=== PATIENT | male | born 1995 | race Caucasian/White ===

== ENCOUNTER 2018-06-23 20:01 | Outpatient (REF) | payer BC, SELFPAY | END 2018-06-23 20:21 | LOC: LBN 20:01 | PROVIDERS: Visit Provider Physician Assistant | DX: J03.90 Acute tonsillitis, unspecified (principal) | CPT/HCPCS: 87070 ==

== ENCOUNTER 2018-06-25 17:49 | Emergency (ER) | payer BC, SELFPAY ==
[2018-06-25 17:55] VITALS: BP 131/56; PULSE 70; RESP 16; TEMP 36.7; O2SAT 98
--- NOTE | 2018-06-25 18:00 | ED.GENADUL_ITS ---
Discharge Plan Disposition Patient Disposition: HOME Condition: Stable Discharge Details Chief Complaint: Sorethroat Clinical Impression: Infectious mononucleosis Primary Care Provider: Susie,Local ED Provider: Silke Aragon Home Meds and New Rx's Prescriptions: Continue ibuprofen 600 mg Tablet 600 mg PO QID PRNRF: 0 Discharge Instructions Instructions: Mononucleosis (ED) Additional Instructions: Please return immediately to the emergency department if you develop any new or worsening symptoms or if you become otherwise concerned. It is extremely important that you make an appointment to be seen by her primary care doctor within 1 week and follow-up for this visit. Please do not play contact sports or participate in activities where you could injure your abdomen for 4 weeks from the onset of your mono symptoms, as you are at increased risk of splenic rupture. Medical Decision Making Jaron Hopkins is a 23-year-old man with history of asthma presenting to the emergency department with worsening sore throat after being diagnosed with mono 2 days ago. On exam patient is well and nontoxic appearing. Tonsils are 3+ bilaterally with midline uvula. Full painless range of motion of the neck. Benign cardiopulmonary exam. Exam/history is not consistent with impending airway compromise, sepsis, retropharyngeal abscess, peritonsillar abscess, acute bacterial infection. Plan for dexamethasone 4 symptomatic treatment. Lengthy discussion with patient regarding no contact sports for 4 weeks from onset of symptoms. Lengthy discussion with patient regarding return to emergency department precautions and importance of outpatient follow-up with his PCP. Patient is amenable to the plan. Medical Records Medical records reviewed: Yes I reviewed the patient's medical records. HPI General Mode of arrival: ambulatory . Date/Time Provider Initiated Documentation: 06/25/18 17:59 . Limitations to Documentation: no limitations . Information obtained by: patient, family, RN notes reviewed and old records reviewed . HPI Narrative: Jaron Hopkins is a 23-year-old man with history of asthma presenting to the emergency department with sore throat. Patient reports that 2 days ago he was diagnosed by his school physician with mono. He reports that he has had sore throat and pain with swallowing for 1 week. Patient now presenting to the emergency department for worsening sore throat since being diagnosed with mono 2 days ago. He has continued to eat and drink as usual. No fevers, no shortness of breath, no cough, no vomiting, no diarrhea, no rash, no drooling. Patient reports that he has been sleeping flat at night with one pillow with no issue. Does not feel short of breath on lying flat. no other recent illness. No recent travel. Related Data Home Medications Medication Instructions Recorded Confirmed ibuprofen 600 mg PO QID PRN 06/25/18 06/25/18 Allergies Allergy/AdvReac Type Severity Reaction Status Date / Time No Known Allergies Allergy Unverified 06/25/18 18:01 General Stated Complaint: Sorethroat AMADOU: 3 Review of Systems Review of Systems Constitutional: denies fevers Eyes: denies eye pain ENT: denies facial pain, dental pain, reports sore throat Cardiovascular: denies chest pain Respiratory: denies SOB, cough GI: denies abdominal pain, vomiting, diarrhea : denies flank pain, dysuria MSK: denies back pain, neck pain, arthralgias, myalgias Skin: denies rash Neuro: denies headaches, lightheadedness, weakness PFSH Social History Smoking/Tobacco Use Status: Never Social History Smoking/Tobacco Use Status: Never Exam Narrative Exam Narrative: Constitutional: well and [id number], pleasant, conversing normally HENT: head atraumatic, normocephalic normal inspection, mucous membranes moist, tonsils 3+ bilaterally with exudate, uvula midline, no other intraoral lesion, no drooling, normal voice, handling secretions without Eyes: conjunctiva normal, sclera normal, pupils 3mm b/l Neck: no stridor, full painless range of motion, trachea midline, no lymphadenopathy Chest: normal inspection Resp: normal work of breathing, LCTAB Cardio: normal rate, normal rhythm, no murmur appreciated Back: normal inspection, no rash Skin: warm, dry, normal color, no rash Neuro: alert, not altered, grossly non-focal, normal tone Ext: no edema Psych: normal mood, normal affect, normal behavior Course Vital Signs Temperature 36.7 C 06/25/18 17:55 Pulse 70 06/25/18 17:55 Respiratory Rate 16 06/25/18 17:55 Blood Pressure 131/56 L 06/25/18 17:55 Pulse Oximetry 98 06/25/18 17:55 Temperature 36.7 C 06/25/18 17:55 Temperature Source Temporal Artery Scan 06/25/18 17:55 Pulse 70 06/25/18 17:55 Respiratory Rate 16 06/25/18 17:55 Blood Pressure 131/56 L 06/25/18 17:55 Blood Pressure Position Sitting 06/25/18 17:55 Pulse Oximetry 98 06/25/18 17:55 Oxygen Delivery Method Room Air 06/25/18 17:55 Oxygen Flow Rate 0 06/25/18 17:55 Pain Level 8 06/25/18 17:55
[2018-06-25] MEDS: Dexamethasone 10 MG/ML VIAL IM (18:38)
== END 2018-06-25 18:44 | disposition home or self-care (01) ==
PROVIDERS: Emergency Provider Student in an Organized Health Care Education/Training Program
DX: B27.90 Infectious mononucleosis, unspecified without complication (principal)
CPT/HCPCS: 96372; 99284; J1100

== ENCOUNTER 2018-06-27 12:57 | Emergency (ER) | payer BC, SELFPAY ==
[2018-06-27 13:01] VITALS: BP 122/72; PULSE 93; RESP 18; TEMP 36.8; O2SAT 100
--- NOTE | 2018-06-27 13:13 | W.ED.GENAD ---
Discharge Plan Disposition Patient Disposition: HOME Condition: Improving Discharge Details Chief Complaint: GenMedical Clinical Impression: Mononucleosis Primary Care Provider: None,None ED Provider: Erwin Desir Home Meds and New Rx's Prescriptions: Continue ibuprofen 800 MG tablet 800 mg PO TID PRN PRNQty: 30 RF: 0 Discharge Instructions Instructions: Viral Syndrome (ED) Additional Instructions: Continue Ibuprofen as needed for pain 800mg every 8 hrs, with food. Small frequent sips of fluids to maintain hydration. May gargle warm salt water to reduce discomfort as well. Please follow-up at [facility] tomorrow for a recheck. No contact sports for 4-6 weeks Stand Alone Forms: School Release Medical Decision Making 23-year-old male presents with 2 days of sore throat and hoarse voice. He was seen in the emergency department on June 25, had an unremarkable/negative throat culture, he was given a dose of steroids and NSAIDs. States that he has had persistent sore throat with some hoarseness of voice. He is not had no drooling or inability to swallow. He is afebrile and exam is notable for bilateral tonsillar erythema, swelling and overlying white exudate. I reviewed available pathology and microbiology including throat culture from June 23 which did not reveal acute pathogen. IV access established, given ketorolac, fluids, dexamethasone for its anti-inflammatory properties. Laboratories obtained and reveal + monospot as well as mild elevation of WBC with mono/lymphocytes. LFT's unremarkable. Patient improved. Taking liquids and popsicle by mouth. States he feels better. Discussed with him his laboratory and recent culture results. Discussed with him avoidance of contact sports and follow-up at [facility] at his college. Lab Data Lab results reviewed: Yes I reviewed the patient's lab results. Laboratory Results - last 24 hr Laboratory Tests Range/Units 06/27/18 06/27/18 06/27/18 13:35 13:35 13:35 WBC (4.4-10.8) k/cumm 11.70 H RBC (4.50-6.00) m/cumm 4.05 L Hgb (13.5-17.5) g/dL 12.5 L Hct (40.0-50.0) % 36.3 L MCV (80-95) fL 89.6 MCH (27.0-33.0) pg 30.9 MCHC (32.0-36.0) g/dL 34.4 RDW (11.8-14.1) % 13.0 Plt Count (130-400) x1000/uL 219 MPV (8.0-11.0) fL 9.6 Immature Gran % 0.3 Neutrophils % 47.9 Lymphocytes % 34.1 Monocytes % 16.1 Eosinophils % 0.1 Basophils % 1.5 Absolute Neutrophils (1.2-6.7) k/cumm 5.60 Absolute Lymphocytes (1.2-3.4) k/cumm 3.99 H Absolute Monocytes (0.11-0.7) k/cumm 1.88 H Absolute Eosinophils (0.0-0.7) k/cumm 0.01 Absolute Basophils (0.0-0.2) k/cumm 0.18 Sodium (136-145) mmol/L 141 Potassium (3.5-5.1) mmol/L 3.8 Chloride (98-107) mmol/L 104 Carbon Dioxide (21.0-32.0) mmol/L 28.3 Anion Gap (3-11) mmol/L 8.7 BUN (7-18) mg/dL 13 Creatinine (0.70-1.30) mg/dL 0.96 Estimated GFR/1.73 m2 (mL/min/1.73m2) >= 60.00 Glucose (70-100) mg/dL 89 Calcium (8.5-10.1) mg/dL 8.6 Total Bilirubin (0.2-1.0) mg/dL 0.5 AST (15-37) U/L 36 ALT (12-78) U/L 72 Alkaline Phosphatase (46-116) U/L 81 Total Protein (6.4-8.2) g/dL 7.5 Albumin (3.4-5.0) g/dL 3.3 L Monoscreen (Negative) Positive 06/27/18 06/27/18 13:35 13:35 WBC 11.70 H RBC 4.05 L Hgb 12.5 L Hct 36.3 L MCV 89.6 MCH 30.9 MCHC 34.4 RDW 13.0 Plt Count 219 MPV 9.6 Immature Gran % 0.3 Neutrophils % 47.9 Lymphocytes % 34.1 Monocytes % 16.1 Eosinophils % 0.1 Basophils % 1.5 Absolute Neutrophils 5.60 Absolute Lymphocytes 3.99 H Absolute Monocytes 1.88 H Absolute Eosinophils 0.01 Absolute Basophils 0.18 Monoscreen Positive HPI General Mode of arrival: ambulatory. Date/Time Provider Initiated Documentation: 06/27/18 13:04. Limitations to Documentation: no limitations. Information obtained by: patient. History of Present Illness 23 year old M presents to the emergency department with the chief complaint of Sore throat, persistent, described as moderate, Quality is described as aching, dull and constant, and is localized to the neck. Patient reports no radiation. Patient started experiencing this day(s) and it has been constant. No relieving factors improve symptom(s), No exacerbating factors reported . Patient notes other (Decreased p.o. intake. Tolerating liquids and able to swallow. He states he has a hoarse voice.). Related Data Home Medications Medication Instructions Recorded Confirmed ibuprofen 800 mg PO TID PRN PRN #30 tab 05/06/16 06/27/18 Previous Rx's Medication Instructions Recorded ibuprofen 800 mg PO TID PRN PRN #30 tab 05/06/16 Allergies Allergy/AdvReac Type Severity Reaction Status Date / Time No Known Allergies Allergy Unverified 05/06/16 22:24 General Stated Complaint: GenMedical AMADOU: 3 Review of Systems Review of Systems 8 systems reviewed and otherwise neg [facility] Social History Smoking/Tobacco Use Status: Never Social History Smoking/Tobacco Use Status: Never Exam Narrative Exam Narrative: GEN: awake, alert, oriented 3. Pleasant, well groomed, interactive. HEAD: Normocephalic, atraumatic ENT: Mucous membranes dry, oropharynx with by lateral, symmetric tonsillar erythema and swelling with overlying white exudate, External ear exam unremarkable EYES: PERRL, EOMI NECK: Full ROM, anterior cervical GORDY, no menigismus CHEST/RESP: Nontender, clear to auscultation bilateral, no wheeze/rhonchi/rales CARDIOVASCULAR: RRR, no murmur, rub raquel. 2+ Rad pulse bilateral ABDOMEN: Soft, nontender, no mass or organomegaly. +Bowel sounds EXT: Full ROM, no edema, no rash Neuro: Grossly normal neurologic exam, conversant, interactive. Psych: Speech fluent, thoughts congruent, affect normal Course Vital Signs Temperature 36.8 C 06/27/18 13:01 Pulse 93 H 12/09/18 13:01 Respiratory Rate 18 06/27/18 13:01 Blood Pressure 122/72 06/27/18 13:01 Pulse Oximetry 100 06/27/18 13:01 Temperature 36.8 C 06/27/18 13:01 Temperature Source Temporal Artery Scan 06/27/18 13:01 Pulse 93 H 06/27/18 13:01 Respiratory Rate 18 06/27/18 13:01 Respiratory Effort 06/27/18 13:08 Respiratory Depth Normal 06/27/18 13:08 Respiratory Pattern Normal 06/27/18 13:08 Blood Pressure 122/72 06/27/18 13:01 Blood Pressure Position Sitting 06/27/18 13:01 Pulse Oximetry 100 06/27/18 13:01 Oxygen Delivery Method Room Air 06/27/18 13:01 Oxygen Flow Rate 0 06/27/18 13:01 Pain Level 8 06/27/18 13:01
[2018-06-27] MEDS: Normal Saline 1,000 ML 1000 ML IV (13:30)
[2018-06-27] MEDS: Dexamethasone 10 MG/ML VIAL IVP (13:31)
[2018-06-27] MEDS: Ketorolac 15 MG/ML VIAL IVP (13:32)
[2018-06-27 13:41] LABS: Abs Immature Grans 0.03 k/cumm (0.0-0.09); Absolute Basophil Count 0.18 k/cumm (0.0-0.2); Absolute Eosinophil Count 0.01 k/cumm (0.0-0.7); Absolute Lymphocyte Count 3.99 k/cumm (1.2-3.4); Absolute Monocyte Count 1.88 k/cumm (0.11-0.7); Basophils % 1.5; Eosinophils % 0.1; HCT 36.3 % (40.0-50.0); HGB 12.5 g/dL (13.5-17.5); Immature Grans % 0.3; Lymphocytes % 34.1; Mean Corp. HGB Concentration 34.4 g/dL (32.0-36.0); Mean Corpuscular Hemoglobin 30.9 pg (27.0-33.0); Mean Corpuscular Volume 89.6 fL (80-95); Mean Platelet Volume 9.6 fL (8.0-11.0); Monocytes % 16.1; Neutrophils % 47.9; Platelet Count 219 x1000/uL (130-400); RBC 4.05 m/cumm (4.50-6.00)
[2018-06-27 13:49] LABS: Mono Screening POSITIVE (Negative)
[2018-06-27 13:54] LABS: ALT 72 U/L (12-78); AST 36 U/L (15-37); Albumin 3.3 g/dL (3.4-5.0); Alkaline Phosphatase 81 U/L (46-116); Anion Gap 8.7 mmol/L (3-11); BUN 13 mg/dL (7-18); Bilirubin, Total 0.5 mg/dL (0.2-1.0); CO2 28.3 mmol/L (21.0-32.0); CREATININE 0.96 mg/dL (0.70-1.30); Calcium 8.6 mg/dL (8.5-10.1); Chloride 104 mmol/L (98-107); Glucose 89 mg/dL (70-100); Potassium 3.8 mmol/L (3.5-5.1); Sodium 141 mmol/L (136-145); Total Protein 7.5 g/dL (6.4-8.2)
[2018-06-27 14:54] VITALS: BP 129/78; PULSE 78; RESP 16; O2SAT 100
== END 2018-06-27 14:55 | disposition home or self-care (01) ==
LOC: ER 15:07
PROVIDERS: Emergency Provider Emergency Medicine
DX: B27.90 Infectious mononucleosis, unspecified without complication (principal); R49.0 Dysphonia
CPT/HCPCS: 36415; 80053; 96361; 96374; 96375; 99284; 85025; 86308; J1100; J1885

== ENCOUNTER 2018-11-04 14:24 | Outpatient (CLI) | payer BC, SELFPAY ==
[2018-11-04 14:59] LABS: Abs Immature Grans 0.03 k/cumm (0.0-0.09); Absolute Eosinophil Count 0.18 k/cumm (0.0-0.7); Absolute Lymphocyte Count 1.14 k/cumm (1.2-3.4); Absolute Neutrophil Count 8.93 k/cumm (1.2-6.7); Basophils % 0.3; Eosinophils % 1.6; HCT 41.9 % (40.0-50.0); HGB 13.9 g/dL (13.5-17.5); Immature Grans % 0.3; Lymphocytes % 9.9; Mean Corp. HGB Concentration 33.2 g/dL (32.0-36.0); Mean Corpuscular Hemoglobin 30.1 pg (27.0-33.0); Mean Corpuscular Volume 90.7 fL (80-95); Mean Platelet Volume 10.3 fL (8.0-11.0); Monocytes % 10.4; Neutrophils % 77.5; Platelet Count 204 x1000/uL (130-400); RBC 4.62 m/cumm (4.50-6.00); RBC Distribution Width 12.6 % (11.8-14.1); White Blood Cell Count 11.52 k/cumm (4.4-10.8)
[2018-11-04 15:07] LABS: Absolute Basophil Count 0.03 k/cumm (0.0-0.2)
[2018-11-04 15:31] LABS: ALT 34 U/L (12-78); AST 41 U/L (15-37); Alkaline Phosphatase 99 U/L (46-116); Anion Gap 8.4 mmol/L (3-11); BUN 17 mg/dL (7-18); Bilirubin, Total 1.2 mg/dL (0.2-1.0); CO2 30.6 mmol/L (21.0-32.0); CREATININE 1.19 mg/dL (0.70-1.30); Calcium 9.3 mg/dL (8.5-10.1); Chloride 102 mmol/L (98-107); Glucose 83 mg/dL (70-100); Potassium 3.9 mmol/L (3.5-5.1); Sodium 141 mmol/L (136-145); Total Protein 7.2 g/dL (6.4-8.2)
[2018-11-04 15:32] LABS: Mono Screening Negative (Negative)
[2018-11-05 10:20] LABS: HIV-1/2 Ag & Ab Screen Negative (NEGAT)
[2018-11-06 11:37] LABS: CMV Ab, IgM Negative (Negative)
== END 2018-11-04 14:44 ==
PROVIDERS: Visit Provider Physician Assistant
DX: B34.9 Viral infection, unspecified (principal); Z11.4 Encounter for screening for human immunodeficiency virus [HIV]; Z01.84 Encounter for antibody response examination
CPT/HCPCS: 36415; 80053; 87389; 85025; 86308; 86644; 86645